=== PATIENT | female | born 1955 ===

== ENCOUNTER 2024-11-22 18:13 | Emergency (ER) | payer MEDICARE ==
[~2024-11-22] VITALS: Ht 170.2 cm; Wt 76.7 kg
== END 2024-11-22 18:55 | disposition home or self-care (01) ==
LOC: ER 18:13
DX: R00.0 Tachycardia, unspecified (principal); T38.3X5A Adverse effect of insulin and oral hypoglycemic [antidiabetic] drugs, initial encounter; E11.9 Type 2 diabetes mellitus without complications; Z88.2 Allergy status to sulfonamides; Z88.8 Allergy status to other drugs, medicaments and biological substances; Z91.041 Radiographic dye allergy status
CPT/HCPCS: 99283